=== PATIENT | female | born 1960 | race Caucasian/White ===

== ENCOUNTER 2021-11-29 09:26 | Observation (INO) ==
[2021-11-29] MEDS ORDERED: Isovue-370 500 ML BOTTLE IVP ONE (09:46)
[2021-11-29 10:23] LABS: Basophils % 0.5 %; Eosinophils # 0.1 K/mcL (0.0-0.6); Eosinophils % 1.7 %; Hematocrit 45.2 % (35.3-44.9); Hemoglobin 15.1 g/dL (11.5-15.4); Immature Granulocytes % 0.4 % (0-4); Lymphocytes # 2.7 K/mcL (0.6-4.6); Lymphocytes % 31.9 %; Mean Corpuscular HGB Conc 33.4 g/dL (31.6-35.5); Mean Corpuscular Hemoglobin 32.3 pg (28.0-33.3); Mean Corpuscular Volume 96.6 fL (83.0-100.0); Mean Platelet Volume 9.9 fL (9.4-12.4); Monocytes # 0.4 K/mcL (0.0-1.3); Monocytes % 4.4 %; Neutrophils # 5.1 K/mcL (1.6-8.9); Platelet Count 215 K/mcL (140-400); Red Blood Count 4.68 M/mcL (3.82-4.97); Red Cell Distribution Width 12.2 % (11.5-14.5); Segmented Neutrophils % 61.1 %; White Blood Count 8.4 K/mcL (4.3-11.1)
[2021-11-29 10:36] LABS: INR 1.1; Prothrombin Time 12.2 Seconds (9.4-12.1)
[2021-11-29 10:38] LABS: Activated Partial Thrombo Time 35.5 Seconds (26.0-36.0)
[2021-11-29 10:45] LABS: Alanine Aminotransferase 4 Units/L (7-52); Albumin 4.2 g/dL (3.5-5.7); Albumin/Globulin Ratio 1.1 (1.1-2.2); Alkaline Phosphatase 107 Units/L (34-104); Aspartate Amino Transferase 11 Units/L (13-39); BUN/Creatinine Ratio 13 (6-26); Bilirubin,Direct 0.1 mg/dL (0.0-0.2); Bilirubin,Indirect 0.4 mg/dL (0.0-1.0); Bilirubin,Total 0.5 mg/dL (0.3-1.0); Blood Urea Nitrogen 11 mg/dL (8-23); Calcium 9.2 mg/dL (8.6-10.3); Carbon Dioxide 24 mEq/L (23-29); Chloride 103 mEq/L (98-107); Globulin 3.7 g/dL (2.4-3.5); Glucose 110 mg/dL (70-105); Osmolality,Calculated 282 (280-300); Potassium 3.8 mEq/L (3.5-5.1); Sodium 136 mEq/L (136-145); Total Protein 7.9 g/dL (6.4-8.9); Troponin I < 0.03 ng/mL (< 0.04); eGFR For African Americans > 60 (> 60); eGFR For Non-African Americans > 60 (> 60)
[2021-11-29] MEDS ORDERED: Ondansetron 4 MG/2 ML VIAL IVP PRN (13:27)
[2021-11-29] MEDS ORDERED: Naloxone 0.4 MG/ML INJ IVP PRN (13:27)
[2021-11-29] MEDS ORDERED: Acetaminophen 325 MG TABLET PO PRN (13:27)
[2021-11-29] MEDS ORDERED: clonazePAM 0.5 MG TABLET PO PRN (14:10)
[2021-11-29] MEDS ORDERED: Perflutren Lipid Microsphere 1.3 ML in 0.9 % Sodium Chloride 8.7 ML IVP PRN (14:11)
[2021-11-29] MEDS: Nicotine 21 MG PATCH.TD24 TD SCH (16:56)
[2021-11-29] MEDS: Aspirin Enteric Coated 81 MG Tablet PO SCH (16:57)
[2021-11-29] MEDS: *HR* Heparin 5,000 UNIT/ML VIAL SQ SCH (17:22)
[2021-11-30 03:11] LABS: Basophils % 0.4 %; Eosinophils # 0.2 K/mcL (0.0-0.6); Eosinophils % 2.3 %; Hematocrit 42.8 % (35.3-44.9); Hemoglobin 14.6 g/dL (11.5-15.4); Immature Granulocytes % 0.3 % (0-4); Lymphocytes # 3.3 K/mcL (0.6-4.6); Lymphocytes % 42.1 %; Mean Corpuscular HGB Conc 34.1 g/dL (31.6-35.5); Mean Corpuscular Hemoglobin 32.6 pg (28.0-33.3); Mean Corpuscular Volume 95.5 fL (83.0-100.0); Mean Platelet Volume 9.7 fL (9.4-12.4); Monocytes # 0.4 K/mcL (0.0-1.3); Monocytes % 5.5 %; Neutrophils # 3.9 K/mcL (1.6-8.9); Platelet Count 208 K/mcL (140-400); Red Blood Count 4.48 M/mcL (3.82-4.97); Red Cell Distribution Width 12.1 % (11.5-14.5); Segmented Neutrophils % 49.4 %; White Blood Count 7.8 K/mcL (4.3-11.1)
[2021-11-30 03:31] LABS: Alanine Aminotransferase 3 Units/L (7-52); Albumin 3.9 g/dL (3.5-5.7); Albumin/Globulin Ratio 1.1 (1.1-2.2); Alkaline Phosphatase 99 Units/L (34-104); Aspartate Amino Transferase 11 Units/L (13-39); BUN/Creatinine Ratio 14 (6-26); Bilirubin,Total 0.7 mg/dL (0.3-1.0); Blood Urea Nitrogen 10 mg/dL (8-23); Calcium 9.3 mg/dL (8.6-10.3); Carbon Dioxide 25 mEq/L (23-29); Chloride 105 mEq/L (98-107); Chol/HDL Ratio 7.3 (0-4.9); Cholesterol 145 mg/dL (< 200); Globulin 3.6 g/dL (2.4-3.5); Glucose 87 mg/dL (70-105); HDL Cholesterol 20 mg/dL (40-59); LDL Cholesterol,Calculated 46 mg/dL (< 100); Magnesium 2.1 mg/dL (1.6-2.6); Osmolality,Calculated 276 (280-300); Potassium 3.6 mEq/L (3.5-5.1); Sodium 134 mEq/L (136-145); Total Protein 7.5 g/dL (6.4-8.9); Triglycerides 396 mg/dL (< 150); Troponin I < 0.03 ng/mL (< 0.04); eGFR For African Americans > 60 (> 60); eGFR For Non-African Americans > 60 (> 60)
[2021-11-30] MEDS: *HR* Heparin 5,000 UNIT/ML VIAL SQ SCH (06:19)
[2021-11-30] MEDS: Aspirin Enteric Coated 81 MG Tablet PO SCH (07:57)
[2021-11-30] MEDS: Nicotine 21 MG PATCH.TD24 TD SCH (07:58)
[2021-11-30 08:26] LABS: Estimated Average Glucose 117 mg/dl; Hemoglobin A1C 5.7 %
[2021-11-30 11:12] VITALS: BP 123/77; PULSE 77; TEMP 97.6; O2SAT 97
== END 2021-11-30 14:24 | disposition home or self-care (01) ==
LOC: EMEROOARM 09:26 → 3BNU 09:26 → SUATTDRO 14:55 → 3BNU 15:52
PROVIDERS: ADMIT Student in an Organized Health Care Education/Training Program; ATTEND Internal Medicine